=== PATIENT | female | born 1955 | race Caucasian/White ===

== ENCOUNTER 2020-03-11 23:34 | Emergency (ER) | payer MEDICAID ==
[~2020-03-11] VITALS: Ht 152.4 cm; Wt 61.0 kg
[2020-03-12 00:07] VITALS: BP 118/71
[2020-03-12] MEDS ORDERED: ACETAMINOPHEN 500MG TABLET PO ONE (00:30)
[2020-03-12] MEDS ORDERED: ONDANSETRON 4MG ODT PO ONE (00:30)
== END 2020-03-12 01:24 | disposition home or self-care (01) ==
LOC: ER 23:34
DX: U07.1 COVID-19 (principal); R03.0 Elevated blood-pressure reading, without diagnosis of hypertension
CPT/HCPCS: 93005; 99284; C9803; Q0162; U0003